=== PATIENT | female | born 1990 | race Hispanic/Latino ===

== ENCOUNTER 2024-12-20 19:30 | Emergency (ER) | payer OTHER ==
[2024-12-20] MEDS ORDERED: Methocarbamol 500 MG TAB ONE (22:37)
[2024-12-20] MEDS ORDERED: Acetaminophen 500 MG TAB ONE (22:37)
[2024-12-20] MEDS ORDERED: Lidocaine 4% Patch ONE (22:37)
== END 2024-12-20 23:08 | disposition home or self-care (01) ==
LOC: CSHERS 19:30
DX: M54.12 Radiculopathy, cervical region (principal); I10 Essential (primary) hypertension; E11.9 Type 2 diabetes mellitus without complications; F17.210 Nicotine dependence, cigarettes, uncomplicated
CPT/HCPCS: 99283